=== PATIENT | female | born 1980 | race Caucasian/White ===

== ENCOUNTER → 2021-02-05 | Emergency (ER) | payer MEDICAID ==
[~2021-02-05] VITALS: Ht 152.4 cm; Wt 109.1 kg
[~2021-02-05] MED LIST: LORA-512 PO; NORG1TAB90 PO
[2021-02-05 09:42] VITALS: BP 151/99
== END | disposition home or self-care (01) ==
LOC: ER 09:13
DX: J02.9 Acute pharyngitis, unspecified (principal); Z20.822 Contact with and (suspected) exposure to COVID-19; Z79.899 Other long term (current) drug therapy
CPT/HCPCS: 87081; 87635; 87880; 99283; C9803